=== PATIENT | female | born 1935 | race Caucasian/White ===

== ENCOUNTER 2016-09-10 11:33 | Emergency (ER) | payer MEDICARE ==
[~2016-09-10] VITALS: Ht 165.1 cm; Wt 104.3 kg
--- NOTE | ~2016-09-10 | EKG ---
PATIENT: ABIMAEL TOVAR UNIT #: [id number] Ventricular Rate: 78 BPM Atrial Rate: 78 BPM P-R Interval: 172 ms QRS Duration: 88 ms Q-T Interval: 394 ms QTC Calculation(Bezet): 449 ms P [place]: 25 degrees Calculated R [place]: 47 degrees Calculated T [place]: -13 degrees Diagnosis Line: Normal sinus rhythm Diagnosis Line: Abnormal QRS-T angle, consider primary T wave Diagnosis Line: abnormality Diagnosis Line: Abnormal ECG Diagnosis Line: When compared with ECG of 28-APR-2015 13:25, Diagnosis Line: Nonspecific T wave abnormality now evident in Diagnosis Line: Inferior leads Diagnosis Line: Confirmed by JEWEL CODY MD ([id number]) on Diagnosis Line: 09/12/2016 12:17:12 PM INTERPRETING MD: JOSE LUIS
[~2016-09-10 11:33] MED LIST: ACTOS PO; ADVAIR 250-501 EAC1 INH; ADVAIR 250-501 EACH INH; ADVAIR 2501 DISK W/D PO; ALBUTEROL0.83 MG/ML INH; AMARYL PO; APIDRA (NF100 UNITS/ SQ; APIDRA (NF100 UNITS/ SUBD; ASPIRIN PO; ASPIRIN81 M1 PO; AZOR PO; BENICAR HCT 40-1 TA1 PO; CIPRO PO; COMBIVENT RESPIM4 GM INH; COMBIVENT14.7 GM INH; COREG CR PO; COREG12.5 MG PO; COUMADIN2.5 MG PO; COUMADIN3 MG PO; COUMADIN5 MG PO; CRESTOR PO; CRESTOR10 MG PO; DARVOCET-N 1001 TAB PO; DELTASONE20 MG PO; DEMADEX10 MG PO; DIOVAN80 M1 PO; FLEXERIL10 MG PO; FOLTX TABLET1 EACH PO; GABAPENTIN300 M2 PO; GABAPENTIN300 MG PO; GLUCOTROL PO; HUMIBID-LA600 MG PO; HYZAAR 100-25 T1 TAB; KEFLEX500 M1 PO; LANTUS100 U/ML SQ; LANTUS100 U/ML SUBQ; LASIX PO; LEVOFLOXACIN750 MG PO; LEXAPRO PO; LOVASTATIN20 M1 PO; LYRICA PO; MEDROL4 MG/DOSE- PO; METOLAZONE2.5 MG PO; MUCINEX PO; MULTAQ400 MG PO; NEURONTIN PO; NICOTINE PATCH1 BOX TD; NORVASC PO; NORVASC10 MG PO; NOVOLOG100 U/M1 SQ; OMNICEF300 M1 PO; PERCOCET5/325 PO; PLAVIX PO; PREVPAC PA1 COMB.PKG PO; PROAIR HFA8.5 GM INH; PROTONIX PO; SKELAXIN PO; SPIRONOLACTONE-1 TAB PO; TORSEMIDE10 M1 PO; ULORIC40 MG DOB; ULORIC40 MG PO; ULORIC80 MG PO; VALSARTAN160 MG PO; VALTURNA 300-321 TAB PO; WARFARIN SODIUM2 M1 PO; ZITHROMAX PO; ZITHROMAX1 G/PKT PO; [UNRECOGNIZED DRUG - OTHER]
[2016-09-10 14:13] LABS: BASOPHIL% 0.5 % (0-2.5); EOSINOPHIL# 0.1 X10e3 (0-0.7); EOSINOPHIL% 2.1 % (0.0-7.0); HEMATOCRIT 37.1 % (35.0-45.0); HEMOGLOBIN 11.9 gm/dL (12.0-16.0); LYMPHOCYTE# 2.1 X10e3 (1.0-3.5); LYMPHOCYTE% 32.6 % (17.0-45.0); MEAN CELL VOLUME 103.8 FL (83-96); MEAN CORPUSCULAR HEMOGLOBIN 33.4 PG (28-34); MEAN CORPUSCULAR HGB CONC 32.2 g/dL (30-36); MEAN PLATELET VOLUME 7.5 FL (6.5-11.5); MONOCYTE# 0.4 X10e3 (0-1.0); MONOCYTE% 5.7 % (3.0-12.0); NEUTROPHIL# 3.8 X10e3 (1.5-7.1); NEUTROPHIL% 59.1 % (40-75); PLATELET COUNT 260 X10e3 (140-420); RED BLOOD COUNT 3.58 X10e (3.90-5.30); RED CELL DISTRIBUTION WIDTH 14.6 % (11.0-15.5); WHITE BLOOD COUNT 6.4 X10e3 (4.0-10.5)
[2016-09-10 14:18] LABS: DIFF IND NO
[2016-09-10 14:32] LABS: INR 3.2; PROTHROMBIN TIME (PATIENT) 34.5 SECONDS (10.0-11.7)
[2016-09-10 14:39] LABS: ALBUMIN SERUM 3.5 g/dL (3.5-5.0); ALKALINE PHOSPHATASE 32 U/L (32-92); ALT (SGPT) 10 U/L (10-40); AST (SGOT) 13 U/L (10-42); BILIRUBIN,TOTAL 0.5 mg/dL (0.2-2.0); BLOOD UREA NITROGEN 24 mg/dL (9-23); CALCIUM SERUM 9.1 mg/dL (8.4-10.2); CARBON DIOXIDE 26 mmol/L (22-31); CHLORIDE 107 mmol/L (100-111); CREATININE SERUM 1.2 mg/dL (0.6-1.4); GLOM FILT RATE Estimated 42.7 mL/min (>60); GLUCOSE FASTING 91 mg/dL (70-110); PROTEIN TOTAL SERUM 7.9 g/dL (6.0-8.3); SODIUM 139 mmol/L (135-145)
[2016-09-10 14:45] LABS: BILIRUBIN, DIRECT <0.1 mg/dL (0.0-0.2); BILIRUBIN,INDIRECT 0.4 mg/dL (0.0-0.9)
== END 2016-09-10 15:42 | disposition home or self-care (01) ==
LOC: CED 11:33
PROVIDERS: Emergency Medicine
DX: I12.9 Hypertensive chronic kidney disease with stage 1 through stage 4 chronic kidney disease, or unspecified chronic kidney disease (principal); N18.9 Chronic kidney disease, unspecified; J44.9 Chronic obstructive pulmonary disease, unspecified; Z90.49 Acquired absence of other specified parts of digestive tract; Z90.710 Acquired absence of both cervix and uterus; F17.210 Nicotine dependence, cigarettes, uncomplicated; Z88.7 Allergy status to serum and vaccine; Z88.8 Allergy status to other drugs, medicaments and biological substances; Z79.4 Long term (current) use of insulin; Z79.899 Other long term (current) drug therapy
CPT/HCPCS: 36415; 80048; 80076; 85025; 85610; 93005; 99285